=== PATIENT | male | born 1950 | race African-American/Black ===

== ENCOUNTER 2021-02-01 21:28 | Emergency (ER) | payer OTHER ==
[~2021-02-01] VITALS: Ht 165.1 cm; Wt 74.8 kg
== END 2021-02-01 22:43 | disposition home or self-care (01) ==
LOC: ER 21:28
DX: M25.511 Pain in right shoulder (principal)

== ENCOUNTER 2021-02-04 19:02 | Emergency (ER) | payer OTHER ==
[~2021-02-04] VITALS: Ht 165.1 cm; Wt 73.9 kg
[2021-02-06] MEDS ORDERED: MOBIC15 MG PO (07:43)
== END 2021-02-05 23:05 | disposition home or self-care (01) ==
LOC: ER 19:02
DX: S10.80XA Unspecified superficial injury of other specified part of neck, initial encounter (principal); S60.571A Other superficial bite of hand of right hand, initial encounter; W86.8XXA Exposure to other electric current, initial encounter; W54.0XXA Bitten by dog, initial encounter; Y93.89 Activity, other specified; Y92.488 Other paved roadways as the place of occurrence of the external cause; Y99.8 Other external cause status

== ENCOUNTER → 2021-02-05 | Emergency (ER) | payer OTHER ==
[~2021-02-05] VITALS: Ht 165.1 cm; Wt 73.9 kg
[~2021-02-05] MED LIST: BAYER THERAPY325 MG PO; MOBIC15 MG PO; PEPCID20 MG PO
== END | disposition home or self-care (01) ==
LOC: ER 21:21
DX: S60.571A Other superficial bite of hand of right hand, initial encounter (principal); W54.0XXA Bitten by dog, initial encounter; Y93.89 Activity, other specified; Y92.488 Other paved roadways as the place of occurrence of the external cause

== ENCOUNTER 2021-02-06 05:15 | Emergency (ER) | payer OTHER ==
[~2021-02-06] VITALS: Ht 165.1 cm; Wt 73.9 kg
[2021-02-06] MEDS ORDERED: MOBIC15 MG PO (07:43)
== END 2021-02-06 10:57 | disposition home or self-care (01) ==
LOC: ER 05:15
DX: M54.2 Cervicalgia (principal); M25.512 Pain in left shoulder; M25.511 Pain in right shoulder; Z59.0 Homelessness

== ENCOUNTER 2021-03-17 01:52 | Emergency (ER) | payer OTHER ==
[~2021-03-17] VITALS: Ht 165.1 cm; Wt 72.6 kg
[~2021-03-17 01:52] MED LIST changes: -BAYER THERAPY325 MG PO; -PEPCID20 MG PO
[2021-03-17] MEDS ORDERED: PEPCID20 MG PO (03:25)
[2021-03-17] MEDS ORDERED: BAYER THERAPY325 MG PO (03:25)
== END 2021-03-17 03:28 | disposition home or self-care (01) ==
LOC: ER 01:52
DX: M54.2 Cervicalgia (principal); G44.89 Other headache syndrome

== ENCOUNTER 2021-07-22 04:16 | Emergency (ER) | payer OTHER ==
[~2021-07-22] VITALS: Ht 165.1 cm; Wt 73.9 kg
[~2021-07-22 04:16] MED LIST changes: +BAYER THERAPY325 MG PO; +PEPCID20 MG PO
== END 2021-07-22 06:47 | disposition left against medical advice (07) ==
LOC: ER 04:16
DX: S00.83XA Contusion of other part of head, initial encounter (principal); W18.09XA Striking against other object with subsequent fall, initial encounter; Y93.89 Activity, other specified; Y92.488 Other paved roadways as the place of occurrence of the external cause; Y99.8 Other external cause status

== ENCOUNTER 2021-08-21 21:48 | Emergency (ER) | payer OTHER ==
[~2021-08-21] VITALS: Ht 170.2 cm; Wt 72.6 kg
[2021-08-22] MEDS ORDERED: KETO10TA2 PO ×2 (03:59→04:00)
[2021-08-22] MEDS ORDERED: TYLENOL (18:42)
== END 2021-08-22 04:17 ==
LOC: ER 21:48
DX: S16.1XXA Strain of muscle, fascia and tendon at neck level, initial encounter (principal); S40.012S Contusion of left shoulder, sequela; S80.02XS Contusion of left knee, sequela; W18.09XS Striking against other object with subsequent fall, sequela

== ENCOUNTER 2021-08-25 13:19 | Emergency (ER) | payer OTHER ==
[~2021-08-25] VITALS: Ht 170.2 cm; Wt 61.2 kg
[~2021-08-25 13:19] MED LIST changes: +KETO10TA2 PO; +TYLENOL
[2021-08-25] MEDS ORDERED: DICLOFENAC POTA50 MG PO (14:07)
[2021-08-25] MEDS ORDERED: CYCLOBENZAPRINE10 MG PO (14:07)
== END 2021-08-25 15:21 | disposition home or self-care (01) ==
LOC: ER 13:19
DX: S33.5XXA Sprain of ligaments of lumbar spine, initial encounter (principal); X50.0XXA Overexertion from strenuous movement or load, initial encounter; Y93.89 Activity, other specified; Y92.488 Other paved roadways as the place of occurrence of the external cause; Y99.8 Other external cause status

== ENCOUNTER → 2021-12-19 | Emergency (ER) | payer OTHER ==
[~2021-12-19] MED LIST changes: +CYCLOBENZAPRINE10 MG PO; +DICLOFENAC POTA50 MG PO; +IBU800 MG PO
== END | disposition left against medical advice (07) ==
LOC: ER 15:43
DX: Z53.20 Procedure and treatment not carried out because of patient's decision for unspecified reasons (principal)

== ENCOUNTER 2021-12-21 16:11 | Emergency (ER) | payer OTHER ==
[~2021-12-21] VITALS: Ht 172.7 cm; Wt 56.7 kg
[~2021-12-21 16:11] MED LIST changes: -IBU800 MG PO
[2021-12-21] MEDS ORDERED: IBU800 MG PO (18:20)
[2021-12-27] MEDS ORDERED: TYLENOL (05:39)
[2021-12-27] MEDS ORDERED: IBU800 MG PO (07:03)
== END 2021-12-21 20:17 | disposition home or self-care (01) ==
LOC: ER 16:11
DX: M54.2 Cervicalgia (principal)

== ENCOUNTER → 2022-02-09 | Emergency (ER) | payer OTHER ==
[~2022-02-09] VITALS: Ht 165.1 cm; Wt 76.7 kg
[~2022-02-09] MED LIST changes: +ALEVE220 M1 PO; +CEPHALEXIN500 MG PO; +CLOTRIMAZOLE-BE15 G1 TOP; +IBU800 MG PO; +LEVSIN/SL0.125 MG SL; +NABUMETONE750 MG PO; +ORPHENADRINE C100 MG PO; +PEPCID40 MG PO
== END | disposition left against medical advice (07) ==
LOC: ER 20:03
DX: Z53.21 Procedure and treatment not carried out due to patient leaving prior to being seen by health care provider (principal)

== ENCOUNTER 2022-02-10 23:53 | Emergency (ER) | payer OTHER ==
[~2022-02-10] VITALS: Ht 165.1 cm; Wt 58.5 kg
[~2022-02-10 23:53] MED LIST changes: -ALEVE220 M1 PO; -CEPHALEXIN500 MG PO; -CLOTRIMAZOLE-BE15 G1 TOP
[2022-02-17] MEDS ORDERED: ALEVE220 M1 PO (00:58)
[2022-02-17] MEDS ORDERED: KETO10TA2 PO (03:04)
== END 2022-02-11 01:53 | disposition left against medical advice (07) ==
LOC: ER 23:53
DX: Z53.21 Procedure and treatment not carried out due to patient leaving prior to being seen by health care provider (principal)

== ENCOUNTER 2022-02-27 19:53 | Emergency (ER) | payer OTHER ==
[~2022-02-27] VITALS: Ht 167.6 cm; Wt 71.7 kg
[~2022-02-27 19:53] MED LIST changes: +ALEVE220 M1 PO
== END 2022-02-27 22:51 | disposition home or self-care (01) ==
LOC: ER 19:53
DX: M54.50 Low back pain, unspecified (principal); Z88.8 Allergy status to other drugs, medicaments and biological substances

== ENCOUNTER 2022-03-06 04:01 | Emergency (ER) | payer OTHER ==
[~2022-03-06] VITALS: Ht 165.1 cm; Wt 65.8 kg
[2022-03-06] MEDS ORDERED: CLOTRIMAZOLE-BE15 G1 TOP (04:58)
[2022-03-06] MEDS ORDERED: CEPHALEXIN500 MG PO (04:58)
== END 2022-03-06 05:44 ==
LOC: ER 04:01
DX: T25.022A Burn of unspecified degree of left foot, initial encounter (principal); T25.021A Burn of unspecified degree of right foot, initial encounter

== ENCOUNTER → 2022-03-09 | Emergency (ER) | payer OTHER ==
[~2022-03-09] VITALS: Ht 162.6 cm; Wt 61.2 kg
[~2022-03-09] MED LIST changes: +CEPHALEXIN500 MG PO; +CLOTRIMAZOLE-BE15 G1 TOP
== END | disposition left against medical advice (07) ==
LOC: ER 20:56
DX: Z53.21 Procedure and treatment not carried out due to patient leaving prior to being seen by health care provider (principal)

== ENCOUNTER → 2022-03-10 | Emergency (ER) | payer OTHER | END | disposition left against medical advice (07) | LOC: ER 03:42 | DX: Z53.21 Procedure and treatment not carried out due to patient leaving prior to being seen by health care provider (principal) ==

== ENCOUNTER → 2022-03-10 | Emergency (ER) | payer OTHER ==
[~2022-03-10] VITALS: Ht 162.6 cm; Wt 74.8 kg
== END | disposition left against medical advice (07) ==
LOC: ER 21:36
DX: Z53.21 Procedure and treatment not carried out due to patient leaving prior to being seen by health care provider (principal)

== ENCOUNTER 2022-03-11 18:13 | Emergency (ER) | payer OTHER ==
[~2022-03-11] VITALS: Ht 165.1 cm; Wt 54.4 kg
== END 2022-03-11 22:12 | disposition home or self-care (01) ==
LOC: ER 18:13
DX: M25.522 Pain in left elbow (principal)

== ENCOUNTER → 2022-03-12 | Emergency (ER) | payer OTHER ==
[~2022-03-12] VITALS: Ht 165.1 cm; Wt 77.1 kg
== END | disposition left against medical advice (07) ==
LOC: ER 18:31
DX: Z53.21 Procedure and treatment not carried out due to patient leaving prior to being seen by health care provider (principal)

== ENCOUNTER → 2022-03-13 | Emergency (ER) | payer OTHER ==
[~2022-03-13] VITALS: Ht 165.1 cm; Wt 78.0 kg
== END | disposition left against medical advice (07) ==
LOC: ER 19:13
DX: Z53.21 Procedure and treatment not carried out due to patient leaving prior to being seen by health care provider (principal)

== ENCOUNTER → 2022-03-14 | Emergency (ER) | payer OTHER | END | disposition home or self-care (01) | LOC: ER 23:27 | DX: Z53.21 Procedure and treatment not carried out due to patient leaving prior to being seen by health care provider (principal) ==

== ENCOUNTER 2022-03-15 14:20 | Emergency (ER) | payer OTHER ==
[~2022-03-15] VITALS: Ht 170.2 cm; Wt 68.0 kg
== END 2022-03-15 15:23 | disposition home or self-care (01) ==
LOC: ER 14:20
DX: S09.90XA Unspecified injury of head, initial encounter (principal); S19.9XXA Unspecified injury of neck, initial encounter

== ENCOUNTER 2022-03-16 16:43 | Emergency (ER) | payer OTHER ==
[~2022-03-16] VITALS: Ht 165.1 cm; Wt 62.1 kg
== END 2022-03-16 19:17 | disposition home or self-care (01) ==
LOC: ER 16:43
DX: K05.10 Chronic gingivitis, plaque induced (principal); G40.802 Other epilepsy, not intractable, without status epilepticus; Z88.8 Allergy status to other drugs, medicaments and biological substances

== ENCOUNTER → 2022-03-17 | Emergency (ER) | payer OTHER | END | disposition home or self-care (01) | LOC: ER 18:10 | DX: Z53.21 Procedure and treatment not carried out due to patient leaving prior to being seen by health care provider (principal) ==

== ENCOUNTER 2022-03-18 14:37 | Emergency (ER) | payer OTHER ==
[~2022-03-18] VITALS: Ht 157.5 cm; Wt 61.2 kg
== END 2022-03-18 23:55 | disposition home or self-care (01) ==
LOC: ER 14:37
DX: M54.9 Dorsalgia, unspecified (principal); Z88.8 Allergy status to other drugs, medicaments and biological substances

== ENCOUNTER → 2022-03-19 | Emergency (ER) | payer OTHER | END | disposition left against medical advice (07) | LOC: ER | DX: Z53.21 Procedure and treatment not carried out due to patient leaving prior to being seen by health care provider (principal) ==

== ENCOUNTER 2022-03-20 14:29 | Emergency (ER) | payer OTHER ==
[~2022-03-20] VITALS: Ht 170.2 cm; Wt 59.0 kg
== END 2022-03-20 16:29 | disposition home or self-care (01) ==
LOC: ER 14:29
DX: M54.2 Cervicalgia (principal)

== ENCOUNTER → 2022-03-21 | Emergency (ER) | payer OTHER ==
[~2022-03-21] VITALS: Ht 165.1 cm; Wt 68.0 kg
== END | disposition left against medical advice (07) ==
LOC: ER 19:40
DX: Z53.21 Procedure and treatment not carried out due to patient leaving prior to being seen by health care provider (principal)

== ENCOUNTER 2022-03-22 08:29 | Emergency (ER) | payer OTHER ==
[~2022-03-22] VITALS: Ht 289.6 cm; Wt 62.1 kg
== END 2022-03-22 15:26 | disposition home or self-care (01) ==
LOC: ER 08:29
DX: H92.01 Otalgia, right ear (principal); D64.9 Anemia, unspecified

== ENCOUNTER → 2022-04-05 | Emergency (ER) | payer OTHER ==
[~2022-04-05] VITALS: Ht 165.1 cm; Wt 68.0 kg
== END | disposition home or self-care (01) ==
LOC: ER 16:45
DX: S90.421A Blister (nonthermal), right great toe, initial encounter (principal); Z91.013 Allergy to seafood; Z88.8 Allergy status to other drugs, medicaments and biological substances

== ENCOUNTER → 2022-04-10 | Emergency (ER) | payer OTHER ==
[~2022-04-10] VITALS: Ht 165.1 cm; Wt 61.7 kg
== END | disposition left against medical advice (07) ==
LOC: ER 17:45
DX: Z53.21 Procedure and treatment not carried out due to patient leaving prior to being seen by health care provider (principal)

== ENCOUNTER 2022-04-11 13:56 | Emergency (ER) | payer OTHER ==
[~2022-04-11] VITALS: Ht 167.6 cm; Wt 77.1 kg
== END 2022-04-11 16:35 | disposition home or self-care (01) ==
LOC: ER 13:56
DX: S90.822A Blister (nonthermal), left foot, initial encounter (principal); X58.XXXA Exposure to other specified factors, initial encounter; Y93.9 Activity, unspecified; Y92.9 Unspecified place or not applicable; Y99.9 Unspecified external cause status; Z88.5 Allergy status to narcotic agent; Z91.013 Allergy to seafood; Z88.8 Allergy status to other drugs, medicaments and biological substances

== ENCOUNTER 2024-02-15 08:17 | Emergency (ER) | payer OTHER ==
[~2024-02-15] VITALS: Ht 162.6 cm; Wt 68.0 kg
[~2024-02-15 08:17] MED LIST changes: +NORFLEX100MG PO; +VAZALORE81 MG
[2024-02-15] MEDS ORDERED: KETOROLAC TROMETHAMINE 30 MG VIAL IM STA (08:44)
== END 2024-02-15 09:23 | disposition home or self-care (01) ==
LOC: ER 08:17
DX: R07.81 Pleurodynia (principal)
CPT/HCPCS: 96372; 99282; J1885

== ENCOUNTER 2024-02-26 22:06 | Emergency (ER) | payer OTHER ==
[~2024-02-26] VITALS: Ht 165.1 cm; Wt 72.1 kg
[2024-02-26] MEDS ORDERED: KETOROLAC TROMETHAMINE 60 MG VIAL IM ONE (22:30)
== END 2024-02-26 22:47 | disposition home or self-care (01) ==
LOC: ER 22:06
DX: M25.561 Pain in right knee (principal); Z91.011 Allergy to milk products; Z91.013 Allergy to seafood; Z88.8 Allergy status to other drugs, medicaments and biological substances
CPT/HCPCS: 96372; 99282; J1885

== ENCOUNTER 2024-03-01 07:39 | Emergency (ER) | payer OTHER ==
[~2024-03-01] VITALS: Ht 165.1 cm; Wt 73.9 kg
== END 2024-03-01 10:21 | disposition left against medical advice (07) ==
LOC: ER 07:39
DX: Z53.21 Procedure and treatment not carried out due to patient leaving prior to being seen by health care provider (principal)

== ENCOUNTER 2024-06-02 06:56 | Emergency (ER) | payer OTHER ==
[~2024-06-02] VITALS: Ht 170.2 cm; Wt 81.6 kg
[2024-06-02] MEDS ORDERED: TRAMADOL HCL 50 MG TABLET PO ONE (08:45)
== END 2024-06-02 09:10 | disposition home or self-care (01) ==
LOC: ER 06:57
DX: M79.605 Pain in left leg (principal); M79.604 Pain in right leg; Z91.011 Allergy to milk products; Z91.013 Allergy to seafood; M19.90 Unspecified osteoarthritis, unspecified site

== ENCOUNTER → 2024-06-10 | Emergency (ER) | payer OTHER ==
[~2024-06-10] VITALS: Ht 165.1 cm; Wt 69.4 kg
== END | disposition left against medical advice (07) ==
LOC: ER 00:13
DX: Z53.21 Procedure and treatment not carried out due to patient leaving prior to being seen by health care provider (principal)

== ENCOUNTER 2024-06-12 13:10 | Emergency (ER) | payer OTHER ==
[~2024-06-12] VITALS: Ht 165.1 cm; Wt 68.0 kg
[2024-06-12] MEDS ORDERED: ACETAMINOPHEN 500 MG GEL..CAP PO ONE (17:00)
== END 2024-06-12 19:41 | disposition home or self-care (01) ==
LOC: ER 13:10
DX: M19.09 Primary osteoarthritis, other specified site (principal); Z88.8 Allergy status to other drugs, medicaments and biological substances

== ENCOUNTER → 2024-06-15 | Emergency (ER) | payer OTHER ==
[~2024-06-15] VITALS: Ht 172.7 cm; Wt 63.5 kg
== END | disposition left against medical advice (07) ==
LOC: ER 08:57
DX: Z53.21 Procedure and treatment not carried out due to patient leaving prior to being seen by health care provider (principal)

== ENCOUNTER → 2024-06-15 | Emergency (ER) | payer OTHER | END | disposition left against medical advice (07) | LOC: ER 15:59 | DX: Z53.21 Procedure and treatment not carried out due to patient leaving prior to being seen by health care provider (principal) ==

== ENCOUNTER 2024-06-20 20:17 | Emergency (ER) | payer OTHER ==
[~2024-06-20] VITALS: Ht 167.6 cm; Wt 68.0 kg
[2024-06-20] MEDS ORDERED: ACETAMINOPHEN 500 MG GEL..CAP PO ONE ×2 (21:30→21:44)
== END 2024-06-20 22:00 | disposition home or self-care (01) ==
LOC: ER 20:18
DX: M79.671 Pain in right foot (principal); M79.672 Pain in left foot; Z88.5 Allergy status to narcotic agent; Z88.9 Allergy status to unspecified drugs, medicaments and biological substances

== ENCOUNTER 2024-06-21 21:39 | Emergency (ER) | payer OTHER ==
[~2024-06-21] VITALS: Ht 162.6 cm; Wt 65.8 kg
[2024-06-22] MEDS ORDERED: KETOROLAC TROMETHAMINE 10 MG TABLET PO STA (02:23)
[2024-06-22] MEDS ORDERED: KETOROLAC TROMETHAMINE 10 MG TABLET PO ONE (02:30)
[2024-06-22] MEDS ORDERED: MELOXICAM15 MG PO (02:41)
== END 2024-06-22 02:55 | disposition home or self-care (01) ==
LOC: ER 21:39
DX: M79.606 Pain in leg, unspecified (principal); G89.29 Other chronic pain; Z88.5 Allergy status to narcotic agent; Z88.9 Allergy status to unspecified drugs, medicaments and biological substances

== ENCOUNTER 2024-06-23 15:39 | Emergency (ER) | payer OTHER ==
[~2024-06-23] VITALS: Ht 180.3 cm; Wt 98.0 kg
[~2024-06-23 15:39] MED LIST changes: +MELOXICAM15 MG PO
[2024-06-23] MEDS ORDERED: ACETAMINOPHEN 500 MG GEL..CAP PO ONE ×2 (17:00→17:03)
== END 2024-06-23 17:11 | disposition home or self-care (01) ==
LOC: ER 15:39
DX: M54.2 Cervicalgia (principal); T73.0XXA Starvation, initial encounter; Z88.5 Allergy status to narcotic agent; Z88.9 Allergy status to unspecified drugs, medicaments and biological substances

== ENCOUNTER 2024-06-30 00:25 | Emergency (ER) | payer OTHER ==
[~2024-06-30] VITALS: Ht 165.1 cm; Wt 67.1 kg
[2024-06-30] MEDS ORDERED: KETOROLAC TROMETHAMINE 10 MG TABLET PO ONE (01:57)
[2024-06-30] MEDS ORDERED: KETOROLAC TROMETHAMINE 10 MG TABLET PO STA (01:57)
== END 2024-06-30 02:24 | disposition home or self-care (01) ==
LOC: ER 00:25
DX: M79.605 Pain in left leg (principal); M79.604 Pain in right leg; Z91.011 Allergy to milk products; Z91.013 Allergy to seafood

== ENCOUNTER 2024-07-08 10:25 | Emergency (ER) | payer OTHER ==
[~2024-07-08] VITALS: Ht 165.1 cm; Wt 72.6 kg
== END 2024-07-08 12:25 | disposition home or self-care (01) ==
LOC: ER 10:25
DX: R53.81 Other malaise (principal); T14.8XXA Other injury of unspecified body region, initial encounter; Z88.5 Allergy status to narcotic agent; Z88.9 Allergy status to unspecified drugs, medicaments and biological substances

== ENCOUNTER 2024-07-09 18:27 | Emergency (ER) | payer OTHER ==
[~2024-07-09] VITALS: Ht 167.6 cm; Wt 68.0 kg
[~2024-07-09 18:27] MED LIST changes: -ACETAMINOPHEN 500 MG GEL..CAP PO ONE
== END 2024-07-09 20:05 | disposition home or self-care (01) ==
LOC: ER 18:27
DX: M25.59 Pain in other specified joint (principal); Z91.013 Allergy to seafood; Z91.011 Allergy to milk products

== ENCOUNTER → 2024-07-09 | Emergency (ER) | payer OTHER ==
[~2024-07-09] VITALS: Ht 165.1 cm; Wt 72.6 kg
[~2024-07-09] MED LIST changes: +ACETAMINOPHEN 500 MG GEL..CAP PO ONE
== END | disposition home or self-care (01) ==
LOC: ER 09:06
DX: M79.602 Pain in left arm (principal); M79.601 Pain in right arm; Z91.013 Allergy to seafood; Z91.011 Allergy to milk products; Z88.8 Allergy status to other drugs, medicaments and biological substances

== ENCOUNTER → 2024-07-26 | Emergency (ER) | payer OTHER ==
[~2024-07-26] VITALS: Ht 167.6 cm; Wt 81.6 kg
[~2024-07-26] MED LIST changes: +ACETAMINOPHEN 500 MG GEL..CAP PO ONE; +ACETAMINOPHEN 500 MG GEL..CAP PO STA; +FAMOtidine 20 MG TABLET PO ONE
== END | disposition left against medical advice (07) ==
LOC: ER 14:44
DX: R53.81 Other malaise (principal); Z88.5 Allergy status to narcotic agent; Z88.9 Allergy status to unspecified drugs, medicaments and biological substances

== ENCOUNTER → 2024-07-26 | Emergency (ER) | payer OTHER ==
[~2024-07-26] VITALS: Ht 167.6 cm; Wt 74.8 kg
[~2024-07-26] MED LIST changes: -ACETAMINOPHEN 500 MG GEL..CAP PO STA; -FAMOtidine 20 MG TABLET PO ONE
== END | disposition home or self-care (01) ==
LOC: ER 19:37
DX: M79.671 Pain in right foot (principal); M79.672 Pain in left foot; Z88.5 Allergy status to narcotic agent; Z88.9 Allergy status to unspecified drugs, medicaments and biological substances

== ENCOUNTER → 2024-07-27 | Emergency (ER) | payer OTHER ==
[~2024-07-27] VITALS: Ht 162.6 cm; Wt 68.0 kg
[~2024-07-27] MED LIST changes: -ACETAMINOPHEN 500 MG GEL..CAP PO ONE
== END | disposition home or self-care (01) ==
LOC: ER 17:50
DX: M79.672 Pain in left foot (principal); M79.671 Pain in right foot; D68.09 Other von Willebrand disease; Z91.013 Allergy to seafood

== ENCOUNTER → 2024-07-28 | Emergency (ER) | payer OTHER ==
[~2024-07-28] VITALS: Ht 165.1 cm; Wt 72.6 kg
== END | disposition left against medical advice (07) ==
LOC: ER 05:21
DX: Z53.21 Procedure and treatment not carried out due to patient leaving prior to being seen by health care provider (principal)

== ENCOUNTER 2024-07-30 18:56 | Emergency (ER) | payer OTHER ==
[~2024-07-30] VITALS: Ht 162.6 cm; Wt 68.0 kg
[2024-07-30] MEDS ORDERED: ACETAMINOPHEN 500 MG GEL..CAP PO STA (20:56)
[2024-07-30] MEDS ORDERED: ACETAMINOPHEN 500 MG GEL..CAP PO ONE (20:59)
== END 2024-07-30 21:13 | disposition home or self-care (01) ==
LOC: ER 18:56
DX: M79.671 Pain in right foot (principal); M79.672 Pain in left foot; M79.606 Pain in leg, unspecified; Z60.9 Problem related to social environment, unspecified; Z88.5 Allergy status to narcotic agent; Z88.9 Allergy status to unspecified drugs, medicaments and biological substances

== ENCOUNTER 2024-10-13 09:24 | Emergency (ER) | payer OTHER ==
[~2024-10-13] VITALS: Ht 157.5 cm; Wt 63.5 kg
[2024-10-13 09:37] VITALS: BP 136/71; O2SAT 100
[2024-10-13] MEDS ORDERED: ACETAMINOPHEN 325 MG TABLET PO ONE (10:00)
== END 2024-10-13 11:39 | disposition home or self-care (01) ==
LOC: ER 09:26
DX: M79.662 Pain in left lower leg (principal); M79.661 Pain in right lower leg; Z91.011 Allergy to milk products; Z91.013 Allergy to seafood

== ENCOUNTER → 2024-10-18 | Emergency (ER) | payer OTHER ==
[~2024-10-18] VITALS: Ht 157.5 cm; Wt 68.0 kg
[2024-10-18 05:34] VITALS: BP 150/78; O2SAT 96
== END | disposition left against medical advice (07) ==
LOC: ER 05:25
DX: Z53.21 Procedure and treatment not carried out due to patient leaving prior to being seen by health care provider (principal)

== ENCOUNTER 2024-10-20 18:00 | Emergency (ER) | payer OTHER ==
[~2024-10-20] VITALS: Ht 165.1 cm; Wt 69.4 kg
[2024-10-20] MEDS ORDERED: KETOROLAC TROMETHAMINE 60 MG VIAL IM ONE (18:45)
== END 2024-10-20 18:56 | disposition home or self-care (01) ==
LOC: ER 18:00
DX: M25.569 Pain in unspecified knee (principal); Z88.5 Allergy status to narcotic agent; Z88.8 Allergy status to other drugs, medicaments and biological substances
CPT/HCPCS: 96372; 99282; J1885

== ENCOUNTER 2024-10-21 18:48 | Emergency (ER) | payer OTHER ==
[~2024-10-21] VITALS: Ht 167.6 cm; Wt 68.0 kg
[2024-10-21] MEDS ORDERED: GUAIFENESIN 200 MG/10 ML BLIST.PACK PO ONE (20:15)
[2024-10-21] MEDS ORDERED: ACETAMINOPHEN 325 MG TABLET PO ONE (20:15)
== END 2024-10-21 21:25 | disposition home or self-care (01) ==
LOC: ER 18:48
DX: R53.81 Other malaise (principal); R05.9 Cough, unspecified; Z88.5 Allergy status to narcotic agent

== ENCOUNTER → 2024-10-21 | Emergency (ER) | payer OTHER | END | disposition home or self-care (01) | LOC: ER 02:33 | DX: R53.81 Other malaise (principal); R05.9 Cough, unspecified; Z88.5 Allergy status to narcotic agent ==

== ENCOUNTER → 2024-10-24 | Emergency (ER) | payer OTHER ==
[~2024-10-24] VITALS: Ht 165.1 cm; Wt 72.6 kg
== END | disposition left against medical advice (07) ==
LOC: ER 02:21
DX: R05.8 Other specified cough (principal); Z91.011 Allergy to milk products; Z91.013 Allergy to seafood

== ENCOUNTER → 2024-10-24 | Emergency (ER) | payer OTHER ==
[~2024-10-24] VITALS: Ht 165.1 cm; Wt 49.9 kg
== END | disposition left against medical advice (07) ==
LOC: ER 15:57
DX: Z53.21 Procedure and treatment not carried out due to patient leaving prior to being seen by health care provider (principal)

== ENCOUNTER → 2024-11-02 | Emergency (ER) | payer OTHER ==
[~2024-11-02] VITALS: Ht 165.1 cm; Wt 75.3 kg
[~2024-11-02] MED LIST changes: +DEXAMETHASONE SODIUM PHOSPHATE 4 MG/ML VIAL IM STA; +KETOROLAC TROMETHAMINE 60 MG VIAL IM STA; +ORPHENADRINE CITRATE 30 MG/ML AMPUL IM STA
== END | disposition left against medical advice (07) ==
LOC: ER 06:42
DX: Z53.21 Procedure and treatment not carried out due to patient leaving prior to being seen by health care provider (principal)